=== PATIENT | female | born 1975 ===

== ENCOUNTER 2024-03-12 17:03 | Emergency (ER) | payer MEDICARE, MEDICAID ==
[~2024-03-12] VITALS: Ht 177.8 cm; Wt 137.9 kg
[2024-03-12 17:18] VITALS: BP 194/105; PULSE 84; RESP 18; TEMP 98; O2SAT 98
== END 2024-03-12 18:18 | disposition left against medical advice (07) ==
LOC: ER 17:05
DX: I10 Essential (primary) hypertension (principal); Z53.21 Procedure and treatment not carried out due to patient leaving prior to being seen by health care provider
CPT/HCPCS: 93005